=== PATIENT | male | born 1970 | race Caucasian/White ===

== ENCOUNTER 2022-06-15 10:29 | Emergency (ER) | payer BC ==
[2022-06-15 11:30] LABS: CARBON DIOXIDE,CO2 26.5 mmol/L (21.0-32.0); POTASSIUM,K 4.1 mmol/L (3.5-5.1)
[2022-06-15 11:51] LABS: CORONAVIRUS COVID-19 NAA NEGATIVE (NEGATIVE); INFLUENZA A NAA NEGATIVE (NEGATIVE); INFLUENZA B NAA NEGATIVE (NEGATIVE); RESPIRATORY SYNCYTIAL VIR NAA NEGATIVE (NEGATIVE)
[2022-06-15 13:45] VITALS: BP 132/85; PULSE 86
== END 2022-06-15 13:42 | disposition home or self-care (01) ==
LOC: MW.ED 10:29
DX: J98.8 Other specified respiratory disorders (principal); F17.220 Nicotine dependence, chewing tobacco, uncomplicated; E66.9 Obesity, unspecified; Z68.32 Body mass index [BMI] 32.0-32.9, adult; Z20.822 Contact with and (suspected) exposure to COVID-19; Z88.7 Allergy status to serum and vaccine; Z79.82 Long term (current) use of aspirin
CPT/HCPCS: 0241U; 36415; 70491; 70491-26; 71260; 71260-26; 80053; 85025; 87651-QW; 99283; 99284

== ENCOUNTER 2022-07-03 07:34 | Day surgery (SDC) | payer BC ==
[~2022-07-03 07:34] MED LIST: Lactated Ringers 1,000 ML IV SCH
[2022-07-03] MEDS ORDERED: Propofol 200 MG/20 ML SDV ONE (08:00)
[2022-07-03] MEDS ORDERED: Lactated Ringers 1,000 ML IV SCH (09:30)
[2022-07-03 14:04] VITALS: BP 116/43; PULSE 61
== END 2022-07-03 10:05 | disposition home or self-care (01) ==
LOC: MW.SDS 07:34
PROVIDERS: ATTEND Surgery
DX: K31.89 Other diseases of stomach and duodenum (principal); K29.50 Unspecified chronic gastritis without bleeding; K20.90 Esophagitis, unspecified without bleeding; Z88.7 Allergy status to serum and vaccine; Z87.891 Personal history of nicotine dependence
CPT/HCPCS: 43239; J2704; J7120; 00731

== ENCOUNTER 2024-05-27 10:05 | Emergency (ER) | payer BC ==
[2024-05-27 10:37] VITALS: BP 121/90; PULSE 72
== END 2024-05-27 10:50 | disposition home or self-care (01) ==
LOC: MW.ED 10:05
DX: J06.9 Acute upper respiratory infection, unspecified (principal); F17.210 Nicotine dependence, cigarettes, uncomplicated; Z79.899 Other long term (current) drug therapy; Z88.7 Allergy status to serum and vaccine; Z75.8 Other problems related to medical facilities and other health care
CPT/HCPCS: 99283

== ENCOUNTER 2024-07-14 10:07 | Day surgery (SDC) | payer BC ==
[2024-07-14] MEDS ORDERED: propofoL 500 MG/50 ML 50 ML ONE (10:24)
[2024-07-14] MEDS: Lactated Ringers 1,000 ML IV SCH (10:36)
[2024-07-14] MEDS ORDERED: Lactated Ringers 1,000 ML IV SCH (12:45)
[2024-07-14 13:27] VITALS: BP 131/95; PULSE 78
== END 2024-07-14 13:00 | disposition home or self-care (01) ==
LOC: MW.SDS 10:07
PROVIDERS: ATTEND Surgery
DX: Z12.11 Encounter for screening for malignant neoplasm of colon (principal); D12.5 Benign neoplasm of sigmoid colon; K57.30 Diverticulosis of large intestine without perforation or abscess without bleeding; Z87.891 Personal history of nicotine dependence; Z86.0100 Personal history of colon polyps, unspecified
CPT/HCPCS: 45380; J2704; J7120; 00811